=== PATIENT | male | born 1965 | race African-American/Black ===

== ENCOUNTER 2023-03-12 13:47 | Inpatient (IN) | payer OTHER ==
[2023-03-12 14:45] VITALS: BMI 20.7
[2023-03-12] MEDS ORDERED: MAGNESIUM HYDROX 2400MG/30ML ORAL SUSPENSION 30 ML CUP PO PRN (16:59)
[2023-03-12] MEDS ORDERED: BENZOCAINE/MENTHOL (CHLORASEPTIC ) LOZENGE MM PRN (16:59)
[2023-03-12] MEDS ORDERED: LOPERAMIDE HCL 2 MG CAPSULE PO PRN (16:59)
[2023-03-12] MEDS ORDERED: guaiFENesin 600 MG TABLET.ER (FP) PO PRN (16:59)
[2023-03-12] MEDS ORDERED: DICYCLOMINE HCL 10 MG CAPSULE PO PRN (16:59)
[2023-03-12] MEDS ORDERED: ACETAMINOPHEN 325 MG TABLET (FP) PO PRN ×2 (16:59)
[2023-03-12] MEDS ORDERED: NALOXONE HCL (KLOXXADO) 8 MG SPRAY NS PRN (16:59)
[2023-03-12] MEDS ORDERED: BENZONATATE 200 MG CAPSULE PO PRN (16:59)
[2023-03-12] MEDS ORDERED: MAG HYDROX/AL HYDROX/SIMETH 30 ML UNIT-DOSE CUP PO PRN (16:59)
[2023-03-12] MEDS ORDERED: POLYETHYLENE GLYCOL (HEALTHYLAX) 3350 17 GM PACKET PO PRN (16:59)
[2023-03-12] MEDS ORDERED: ONDANSETRON *ODT* 4 MG TABLET SL PRN (16:59)
[2023-03-12] MEDS ORDERED: BISMUTH SUBSALICYLATE 524 MG/30 ML PO PRN (16:59)
[2023-03-12] MEDS ORDERED: NALOXONE HCL 0.4 MG/ML VIAL IM PRN (16:59)
[2023-03-12] MEDS: P-EPHED 60MG/TRIPROLIDI 2.5MG TABLET PO PRN (18:27)
[2023-03-12] MEDS ORDERED: MELATONIN 5 MG TABLETS PO SCH (22:00)
[2023-03-12] MEDS: THIAMINE HCL 100 MG TABLET (FP) PO SCH (22:45)
[2023-03-13] MEDS: METHOCARBAMOL 500 MG TABLET PO PRN ×2 (03:15→10:14)
[2023-03-13] MEDS: IBUPROFEN 600 MG TABLET (FP) PO PRN ×2 (03:15→14:24)
[2023-03-13] MEDS: cloNIDine HCL 0.1 MG TABLET PO PRN ×2 (03:18→22:11)
[2023-03-13] MEDS: PRENATAL VITAMINS W/ FOLIC ACID TABLET (FP) PO SCH (10:28)
[2023-03-13] MEDS ORDERED: methaDONE HCL 10 MG TABLET (FOR DETOX USE ONLY) PO ONE (11:50)
[2023-03-13] MEDS ORDERED: cloNIDine HCL 0.1 MG TABLET PO PRN (11:50)
[2023-03-13 13:36] LABS: HEMATOCRIT 38.5 % (35.4-49); HEMOGLOBIN 13.5 GM/dL (11.7-16.9); MEAN CELL VOLUME 82.8 fl (80-96); PLATELET COUNT 263 10^3/uL (134-434); RBC 4.64 M/mm3 (4.00-5.60); RDW 14.8 % (11.9-15.9); WHITE BLOOD COUNT 6.7 K/mm3 (4.0-10.0)
[2023-03-13 13:46] LABS: POTASSIUM 4.2 mmol/L (3.5-5.1)
[2023-03-13 13:56] LABS: CALCIUM 9.5 mg/dL (8.5-10.1)
[2023-03-13 13:57] LABS: BLOOD UREA NITROGEN 11.8 mg/dL (7-18); CREATININE 0.7 mg/dL (0.55-1.3)
[2023-03-13 14:00] LABS: BILIRUBIN,TOTAL 0.7 mg/dL (0.2-1); TOT PROT 7.3 g/dl (6.4-8.2)
[2023-03-13 14:47] LABS: HIV INTERPRETATION NEGATIVE (NEGATIVE)
[2023-03-13] MEDS: THIAMINE HCL 100 MG TABLET (FP) PO SCH (22:09)
[2023-03-13] MEDS: hydrOXYzine PAMOATE 25 MG CAPSULE (FP) PO PRN (22:11)
[2023-03-14] MEDS: PRENATAL VITAMINS W/ FOLIC ACID TABLET (FP) PO SCH (10:03)
[2023-03-14] MEDS: IBUPROFEN 400 MG TABLET (FP) PO PRN (10:06)
[2023-03-14] MEDS: THIAMINE HCL 100 MG TABLET (FP) PO SCH (22:25)
[2023-03-14] MEDS: cloNIDine HCL 0.1 MG TABLET PO PRN (22:25)
[2023-03-14] MEDS: SUVOREXANT 10 MG TABLET PO PRN (22:26)
[2023-03-14] MEDS: IBUPROFEN 600 MG TABLET (FP) PO PRN (22:27)
[2023-03-15] MEDS ORDERED: methaDONE HCL 10 MG TABLET (FOR DETOX USE ONLY) PO ONE (10:00)
[2023-03-15] MEDS: METHOCARBAMOL 500 MG TABLET PO PRN (10:03)
[2023-03-15] MEDS: cloNIDine HCL 0.1 MG TABLET PO PRN (10:03)
[2023-03-15] MEDS: IBUPROFEN 400 MG TABLET (FP) PO PRN (10:03)
[2023-03-15] MEDS: P-EPHED 60MG/TRIPROLIDI 2.5MG TABLET PO PRN (10:05)
[2023-03-15] MEDS: PRENATAL VITAMINS W/ FOLIC ACID TABLET (FP) PO SCH (10:05)
[2023-03-15] MEDS: SUVOREXANT 10 MG TABLET PO PRN (22:02)
[2023-03-15] MEDS: THIAMINE HCL 100 MG TABLET (FP) PO SCH (22:03)
[2023-03-15] MEDS: IBUPROFEN 600 MG TABLET (FP) PO PRN (22:03)
[2023-03-16] MEDS: PRENATAL VITAMINS W/ FOLIC ACID TABLET (FP) PO SCH (10:23)
[2023-03-16] MEDS: P-EPHED 60MG/TRIPROLIDI 2.5MG TABLET PO PRN (10:24)
[2023-03-16] MEDS: IBUPROFEN 600 MG TABLET (FP) PO PRN (18:34)
[2023-03-16] MEDS: cloNIDine HCL 0.1 MG TABLET PO PRN (22:23)
[2023-03-16] MEDS: METHOCARBAMOL 500 MG TABLET PO PRN (22:23)
[2023-03-16] MEDS: hydrOXYzine PAMOATE 25 MG CAPSULE (FP) PO PRN (22:23)
[2023-03-16] MEDS: THIAMINE HCL 100 MG TABLET (FP) PO SCH (22:23)
[2023-03-16] MEDS ORDERED: SUVOREXANT 10 MG TABLET PO ONE (22:41)
[2023-03-17] MEDS: IBUPROFEN 600 MG TABLET (FP) PO PRN (09:43)
[2023-03-17] MEDS: PRENATAL VITAMINS W/ FOLIC ACID TABLET (FP) PO SCH (09:43)
[2023-03-17] MEDS ORDERED: methaDONE HCL 10 MG TABLET (FOR DETOX USE ONLY) PO ONE (10:00)
[2023-03-17] MEDS ORDERED: traZODone HCL 50 MG TABLET (FP) PO SCH (22:00)
[2023-03-17] MEDS: hydrOXYzine PAMOATE 25 MG CAPSULE (FP) PO PRN (22:26)
[2023-03-17] MEDS: cloNIDine HCL 0.1 MG TABLET PO PRN (22:26)
[2023-03-17] MEDS: METHOCARBAMOL 500 MG TABLET PO PRN (22:26)
[2023-03-17] MEDS: THIAMINE HCL 100 MG TABLET (FP) PO SCH (22:27)
[2023-03-18] MEDS: IBUPROFEN 600 MG TABLET (FP) PO PRN (05:46)
[2023-03-18 06:00] VITALS: RESP 16
[2023-03-18 09:50] VITALS: BP 116/77; PULSE 78; TEMP 98
== END 2023-03-18 09:35 | disposition home or self-care (01) | DRG 773 ==
LOC: YASAS 13:47 → Y3N 17:03 → UNDOADMIN 17:03 → Y3N 17:04
PROVIDERS: ADMIT Allergy & Immunology; ATTEND Surgery
PROC: HZ2ZZZZ Detoxification Services for Substance Abuse Treatment (ICD-10-PCS; principal; 2023-03-12)
DX: F11.23 Opioid dependence with withdrawal (principal); F12.10 Cannabis abuse, uncomplicated; F17.210 Nicotine dependence, cigarettes, uncomplicated; F19.282 Other psychoactive substance dependence with psychoactive substance-induced sleep disorder; M54.50 Low back pain, unspecified; G89.29 Other chronic pain; R63.4 Abnormal weight loss; Z68.20 Body mass index [BMI] 20.0-20.9, adult; Z86.11 Personal history of tuberculosis; Z86.19 Personal history of other infectious and parasitic diseases
CPT/HCPCS: 36415; 71046-TC-FY; 72100-TC-FY; 80053; 85027; 86780; 86803; 87389; C9803-CS; U0003; U0005